=== PATIENT | male | born 1950 | race Caucasian/White ===

== ENCOUNTER → 2016-07-02 | Outpatient (CLI) | payer OTHER ==
[~2016-07-02] MED LIST: ASPCH81X PO; CHOL400T PO; CLOP1TAB15 PO; FISH1CAP7 PO; LISI-787 PO; LPT10 PO; MAGN400T5 PO; MULT-190 PO; MULT-610 PO; NTRGSL/4 UT; ZNTT/150 PO
[2016-07-02 12:42] LABS: ALT/SGPT 9 U/L (12-78); AST/SGOT 28 U/L (15-37); BLOOD UREA NITROGEN 22 mg/dl (7-18); BUN/CREATININE RATIO 15.6 (10-20); CALCIUM 8.6 mg/dl (8.5-10.1); CARBON DIOXIDE 29 mmol/L (21-32); CHLORIDE 107 mmol/L (98-107); GLUCOSE 96 mg/dl (70-99); POTASSIUM 4.5 mmol/L (3.5-5.1); SODIUM 143 mmol/L (136-145)
[2016-07-02 12:45] LABS: CHOLESTEROL 136 mg/dl (0-200); CHOLESTEROL/HDL RATIO 2.4; HDL CHOLESTEROL 56 mg/dl; LDL CHOLESTEROL CALCULATED 62 mg/dl; TRIGLYCERIDES 90 mg/dl (0-150); VERY LOW DENSITY LIPOPROT CALC 18 mg/dl
== END | disposition home or self-care (01) ==
LOC: C.LABPVFM 08:38
PROVIDERS: ATTEND Family Medicine
DX: Z11.59 Encounter for screening for other viral diseases (principal); I10 Essential (primary) hypertension; E78.2 Mixed hyperlipidemia

== ENCOUNTER 2016-12-25 09:29 | Emergency (ER) | payer OTHER ==
[~2016-12-25] VITALS: Ht 172.7 cm; Wt 97.3 kg
[~2016-12-25 09:29] MED LIST changes: -MULT-190 PO
[2016-12-25 09:32] VITALS: TEMP 36.3; Ht 172.7 cm; Wt 97.3 kg
[2016-12-25] MEDS ORDERED: DIPHTHERIA/TETANUS/PERTUSSIS 0.5 ML SYR/VIAL IM. ONE (10:15)
[2016-12-25] MEDS ORDERED: MULT-190 PO (10:20)
--- NOTE | 2016-12-25 10:20 | EMERGENCY ROOM VISIT NOTE ---
ED Visit Note First contact with patient: 09:37 CHIEF COMPLAINT: Left forearm laceration last evening HISTORY OF PRESENT ILLNESS: Patient is a [id number] 66-year-old white male who presents emergency department for evaluation of a laceration to the dorsal aspect of the left forearm that he sustained greater than 12 hours ago. He was using a wood splitter and accidentally hit the back of his arm on the splitter blade. Bleeding was controlled with pressure. He cleansed the area with soap and water, applied antibiotic ointment and a bandage until this morning. He denies any pain. His tetanus is greater than 10 years ago. REVIEW OF SYSTEMS: Review of systems as per HPI. All other systems reviewed were negative. At least 6 systems reviewed. PMH: Electronic medical records are reviewed and summarized as above/below. See Problem List. Tetanus is greater than 10 years ago. SOCIAL HISTORY: Patient lives at home with his . Nonsmoker. PHYSICAL EXAM: Vital Signs: Reviewed Nurse's notes. There is a superficial 3 cm long laceration on the dorsal aspect of the left forearm do not gape. The edges are gaping widely apart. There is no foreign material in the wound and it looks clean. There is no active bleeding. No deep structures such as tendons or nerves are seen in the base of the wound. Elbow and wrist range of motion are full. Left upper extremity is neurovascularly intact. EMERGENCY DEPARTMENT COURSE: Patient's tetanus was updated. The laceration was cleansed with saline and chlorhexidine and irrigated with saline. Benzoin and Steri-Strips and a light bandage were applied. I do not suspect nerve, vascular or tendinous injury or retained foreign body. Medication reconciliation: I attest that I have personally reviewed the patient' s current medication list. Blood pressure screening: Patient was found to have a slightly elevated blood pressure due to circumstances. I do not believe that the patient requires hypertension monitoring. He does have a history of hypertension and is treated. Problem List Medical Problems: (1) Benign Hypertension Status: Chronic (2) Cardiac Dysrhythmias Nec Status: Chronic (3) Coronary Atherosclerosis Of [place] Coronary Vessel Status: Chronic (4) Mixed Hyperlipidemia Status: Chronic Current/Historical Medications Scheduled Aspirin (Aspirin Chewable), 81 MG PO DAILY Atorvastatin (Atorvastatin Calcium), 10 MG PO DAILY Cholecalciferol (Vitamin D), 400 MG PO DAILY Fish Oil-Cholecalciferol (Fish Oil +D3 1217-9550 mg-Unit), 1,000 MG PO BID Lisinopril & Hydrochlorothiazi (Zestoretic 20-12.5 mg), 1 TAB PO DAILY Magnesium Oxide (Mag-Ox), 400 MG PO DAILY Multiple Vitamins W/ Minerals (Centrum Adults), 1 TAB PO DAILY Nitroglycerin (Nitrostat), 0.4 MG UT PRN Ocuvite Preservision (Ocuvite Preservision), 2 TAB PO DAILY Ranitidine (Zantac), 150 MG PO BID Allergies Coded Allergies: No Known Allergies (Verified , 12/25/16) Vital Signs Date Time Temp Pulse Resp B/P (MAP) Pulse Ox O2 Delivery O2 Flow Rate FiO2 12/25/16 11:00 54 16 147/92 97 12/25/16 09:32 36.3 70 16 161/90 96 Room Air Medications Administered Medications (Trade) Dose Ordered Sig/Joy Route Start Time Stop Time Status Last Admin Dose Admin Diphtheria/ Pertussis/Tetanus Vacc (Adacel Inj) 0.5 ml ONCE ONCE IM. 12/25/16 10:15 12/25/16 10:16 DC 12/25/16 10:37 0.5 ML Departure Information Impression Primary Impression: Forearm laceration Referrals Gage Nunn M.D. (PCP) Patient Instructions My [facility] Additional Instructions May clean the area gently with mild soap and water. Allow the Steri-Strips to fall off on their own. They cover with a light bandage as necessary. Activity as tolerated. Monitor for any signs of infection and follow up with your PCP should she notice any increased redness, swelling, pain or drainage. Problem Qualifiers Primary Impression: Forearm laceration Encounter type: initial encounter Laterality: left Qualified Codes: S51.812A - Laceration without foreign body of left forearm, initial encounter
[2016-12-25 11:00] VITALS: BP 147/92; PULSE 54; O2SAT 97
--- NOTE | 2016-12-25 15:32 | EMERGENCY ROOM VISIT NOTE ---
ED Visit Note First contact with patient: 09:37 I have personally seen and evaluated the patient with the PA. I agree with the diagnosis and management decisions and have been personally involved in the case. Please see [facility] PA-C's notes for further details of the history , physical and visit.
== END 2016-12-25 11:00 | disposition home or self-care (01) ==
LOC: C.EDB 09:30 → C.EDA 11:00
DX: S51.812A Laceration without foreign body of left forearm, initial encounter (principal); W31.2XXA Contact with powered woodworking and forming machines, initial encounter; Z23 Encounter for immunization; I10 Essential (primary) hypertension; I25.10 Atherosclerotic heart disease of native coronary artery without angina pectoris; E78.2 Mixed hyperlipidemia; Z79.82 Long term (current) use of aspirin; Z79.899 Other long term (current) drug therapy

== ENCOUNTER → 2017-03-09 | Outpatient (CLI) | payer OTHER ==
[~2017-03-09] MED LIST changes: -CLOP1TAB15 PO; +MULT-190 PO
[2017-03-09 13:03] LABS: % FREE PSA 34.6 %; FREE PSA 1.54 ng/ml; PROSTATE SPECIFIC ANTIGEN 4.45 ng/ml (0.000-4.000)
== END | disposition home or self-care (01) ==
LOC: C.LABPVFM 08:47
PROVIDERS: ATTEND Urology
DX: R97.20 Elevated prostate specific antigen [PSA] (principal)

== ENCOUNTER → 2017-09-14 | Outpatient (CLI) | payer OTHER ==
[~2017-09-14] MED LIST changes: +RANI150T85 PO; -ZNTT/150 PO
[2017-09-14 13:25] LABS: ALT/SGPT 11 U/L (12-78); AST/SGOT 31 U/L (15-37); BLOOD UREA NITROGEN 24 mg/dl (7-18); CALCIUM 9.1 mg/dl (8.5-10.1); CARBON DIOXIDE 30 mmol/L (21-32); CREATININE 1.41 mg/dl (0.60-1.40); GLUCOSE 94 mg/dl (70-99); POTASSIUM 4.4 mmol/L (3.5-5.1); SODIUM 137 mmol/L (136-145)
[2017-09-14 13:28] LABS: ALKALINE PHOSPHATASE 54 U/L (45-117); CHOLESTEROL 159 mg/dl (0-200); LDL CHOLESTEROL CALCULATED 75 mg/dl; TOTAL PROTEIN 7.7 gm/dl (6.4-8.2)
[2017-09-15 07:23] LABS: HEMOGLOBIN A1C 5.4 % (4.5-5.6)
== END | disposition home or self-care (01) ==
LOC: C.LABPVFM 09:32
PROVIDERS: ATTEND Family Medicine
DX: E78.2 Mixed hyperlipidemia (principal)